=== PATIENT | male | born 1970 | race Hispanic/Latino ===

== ENCOUNTER 2019-06-24 10:06 | Day surgery (SDC) | payer BC ==
--- NOTE | 2019-06-24 09:48 | Short Stay Summary ---
Short Stay Documentation Date of service: 06/24/19 - History H&P: obtained from office - Allergies and Medications Current Medications: Allergies No Known Allergies Allergy (Verified 06/17/19 17:18) Home Medications Medication Instructions Recorded Confirmed Last Taken Type No Known Home Medications [No 06/17/19 06/17/19 Unknown History Reported Home Medications] Active Medications Celecoxib (Celebrex) 400 mg PO PREOP NR Stop: 06/24/19 23:59 Gabapentin (Gabapentin) 1,200 mg PO PREOP TIFFANIE Stop: 06/24/19 23:59 Sodium Chloride (Nacl 0.9% 1000 Ml) 1,000 mls @ 100 mls/hr IV DIRECT TIFFANIE Cefazolin Sodium (Ancef/Sterile Water 2 Gm/20 Ml) 2 gm in 20 mls @ 80 mls/hr IV PREOP NR; Protocol Stop: 06/24/19 23:59 - Physical exam General appearance: no acute distress HEENT: Atraumatic Lungs: Normal air movement Gastrointestinal: other (umbilical hernia) Neurological: Normal speech - Brief post op/procedure progress note Date of procedure: 06/24/19 (dictation:[id number]) Pre-op diagnosis: symptomatic umbilical hernia Post-op diagnosis: same Procedure: dx lap, open umbo repair with mesh, excision of redundant skin IVF 1250cc EBL min Anesthesia: GETA Findings: 3cm fascial defect at umbo Surgeon: ANTIONETTE OCAMPO Metaphysics Teacher: JEFFY PERDOMO Pathology: list (umbilical skin) Specimen disposition: to lab Condition: stable - Hospital course Hospital course: uneventful - Disposition Condition at discharge: Stable Disposition: DC-01 TO HOME OR SELFCARE Short Stay Discharge Plan Activity: advance as tolerated Diet: regular Wound: open to air, keep clean and dry Special Instructions: no heavy lifting, other (empty drain daily and record output.) Additional Instructions: Post Operative Instructions Activity: no heavy lifting for next 1 week. May shower tomorrow. Pat dry the wound or wounds. Keep incision sites clean and dry After surgery, start with a light diet. Consider starting with liquids. If you do well, you can advance to a regular diet as you feel comfortable. Wear the abdominal binder during the day. Try to wear at night if you are able to sleep with it on. May remove for showering. Replace gauze in belly button area after showering. Apply an ice pack to the wound or wounds for 10-20 minutes at a time. Do this at least 4-5 times a day. You can do it more if he would like. Pain Medication Schedule for the first 2 days after surgery: Gabapentin 600mg twice a day Celebrex (celecoxib) 200mg twice a day Tylenol 500mg four times a day (every 6 hours) After the first 2 days, then take alternating doses of ibuprofen and Tylenol as needed for pain. Take 600 mg of ibuprofen every 6 hours as needed. Take 500 mg of Tylenol every 6 hours as needed. You should alternate these 2 medicines. Make sure you take the ibuprofen with food. It is very important that you use the prescription narcotic pain medicine (hydrocodone) only for very severe pain. Do not take the narcotic medicine before you try using all the medications listed above. We will call you in a couple of days to see how youre doing. If you have any questions or concerns, always feel free to call the clinic ([phone]) at any time. Follow up with: DELFINA LAKE MD [Primary Care Provider] - 7 Days ANTIONETTE OCAMPO MD [Staff Physician] - 7 Days Forms: Outpatient Surgery DC Inst. Prescriptions: Celecoxib [celeBREX] 200 mg PO BID #4 capsule Gabapentin 900 mg PO BID #12 capsule HYDROcodone/APAP 5-325 [Felt 5-325 mg TAB] 1 each PO Q6HR PRN #20 tablet PRN Reason: Pain Acetaminophen [Tylenol] 650 mg PO QID #16 capsule
[~2019-06-24 10:06] MED LIST: ACETAMINOPHEN 500 MG TAB PO ONE; CELECOXIB 200 MG CAP PO NR; GABAPENTIN 400 MG CAP PO SCH; SODIUM CHLORIDE 0.9% 1000 ML 1,000 ML IV SCH; ceFAZolin/Water 2 GM/20 ML 2 GM/20 ML SYRINGE IV NR
[2019-06-24] MEDS ORDERED: GABAPENTIN 300 MG CAP PO NR (10:45)
--- NOTE | 2019-06-24 11:16 | Anesthesia Day of Surgery ---
Anesthesia Day of Surgery - Day of Surgery Patient Examined: Yes Patient H&P Reviewed: Yes Patient is NPO: Yes
--- NOTE | 2019-06-24 11:16 | Anesthesia Consultation ---
Anesthesia Consult and Med Hx Date of service: 06/24/19 - Airway Anesthetic Teeth Evaluation: Good ROM Head & Neck: Adequate Mental/Hyoid Distance: Adequate Mallampati Class: Class II Intubation Access Assessment: Good - Pulmonary Exam CTA: Yes - Cardiac Exam Cardiac Exam: No Murmur - Pre-Operative Health Status ASA Pre-Surgery Classification: ASA2 Proposed Anesthetic Plan: General - Pulmonary Hx Smoking: Yes (AT LEAST 40YRS; 1PPD NOW (STATED UNABLE TO STOP FOR SURGERY)) - Other Systems Hx Alcohol Use: No Hx Substance Use: No Hx Cancer: No Hx Obesity: Yes (BMI 33)
[2019-06-24] MEDS ORDERED: ACETAMINOPHEN 500 MG TAB ONE (11:49)
[2019-06-24] MEDS ORDERED: LIDOCAINE (1%) 10 MG/1 ML VIAL 20 ML MDV ONE (11:53)
[2019-06-24] MEDS ORDERED: BUPIVACAINE-EPINEPHRINE/PF 0.5%-1:200,000 (30 ML) VIAL INFILTRATI ONE ×2 (11:53→13:31)
[2019-06-24] MEDS ORDERED: FAMOTIDINE 20 MG TAB PO NR (12:00)
[2019-06-24] MEDS ORDERED: MIDAZOLAM 2 MG/2 ML INJ ONE (12:00)
[2019-06-24] MEDS ORDERED: ROCURONIUM 50 MG/5 ML INJ IV ONE (12:00)
[2019-06-24] MEDS ORDERED: fentaNYL 100 MCG/2 ML INJ ONE (12:00)
[2019-06-24] MEDS ORDERED: HYDROmorphone 1 MG/1 ML INJ ONE (12:00)
[2019-06-24] MEDS ORDERED: LIDOCAINE MPF (2%) 20 MG/1 ML VIAL 5 ML ONE (12:00)
[2019-06-24] MEDS ORDERED: MIDAZOLAM 2 MG/2 ML INJ IV NR (12:00)
[2019-06-24] MEDS ORDERED: PROPOFOL 200 MG/20 ML VIAL IV ONE (12:01)
[2019-06-24] MEDS ORDERED: PHENYLEPHRINE/NS 1,000 MCG/10 ML SYRINGE (OR USE) IV ONE (12:38)
[2019-06-24] MEDS ORDERED: KETOROLAC 30 MG/1 ML INJ ONE (13:09)
[2019-06-24] MEDS ORDERED: dexAMETHasone 20 MG/5 ML VIAL ONE (13:10)
[2019-06-24] MEDS ORDERED: ONDANSETRON 4 MG/2 ML INJ ONE (13:10)
[2019-06-24] MEDS ORDERED: GLYCOPYRROLATE 0.4 MG/2 ML INJ ONE (13:10)
[2019-06-24] MEDS ORDERED: NEOSTIGMINE 10MG/10 ML INJ MDV ONE (13:10)
[2019-06-24] MEDS ORDERED: LACTATED RINGERS 1,000 ML ONE (13:12)
[2019-06-24] MEDS ORDERED: LIDOCAINE (1%) 10 MG/1 ML VIAL 20 ML MDV INFILTRATI ONE (13:32)
[2019-06-24] MEDS ORDERED: WATER FOR IRRIG STERILE 1,500 ML BOTTLE IR ONE (13:33)
[2019-06-24] MEDS ORDERED: fentaNYL 100 MCG/2 ML INJ IV PRN (13:57)
[2019-06-24] MEDS ORDERED: HYDROcodone/ACETAMINOPHEN 5-325 MG TAB PO PRN (14:15)
[2019-06-24 15:09] VITALS: BP 136/85
--- NOTE | 2019-06-24 17:26 | Post Anesthesia Evaluation ---
- Post Anesthesia Evaluation Patient Participated: Yes Airway Patent: Yes Stable Respiratory Function: Yes Nausea/Vomiting: No Temp > 96.8F: Yes Pain Manageable: Yes Adequeate Hydration: Yes Anesthesia Complications: No
--- NOTE | 2019-06-25 15:14 | Operative Report ---
OPERATIVE NOTE PREOPERATIVE DIAGNOSIS: Symptomatic umbilical hernia. POSTOPERATIVE DIAGNOSIS: Symptomatic umbilical hernia. PROCEDURES: 1. Diagnostic laparoscopy. 2. Open umbilical hernia repair with mesh. ATTENDING PHYSICIAN: Lin Hylton MD MUSIC AUTOGRAPHER: Dr. Callaway. ANESTHESIA: General. ESTIMATED BLOOD LOSS: Minimal. FLUIDS: 1250 mL. Minimal blood loss. FINDINGS: Approximately 2.5 cm umbilical hernia, oriented in a transverse manner, no incarcerated contents. Overlying skin was showing signs of breakdown, but no full-thickness perforation had occurred yet. Skin was very thin. Rest of the intraabdominal cavity was normal. IMPLANTS: Large Ventralex [place]. DRAINS: None. COMPLICATIONS: None. DISPOSITION: Stable, transferred to Recovery Room. INDICATIONS: This is a 49-year-old male who presented with a painful umbilical hernia that had been growing over the years. The patient wished to have it repaired. The patient appeared to be in need of repair. However, the patient was current smoker in the clinic. We discussed the importance of stopping the smoking. 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 I made sure that he understood that we were at increased risks of complications as well as hernia recurrence risk. The patient understood and wished to proceed. Procedure, risks, and benefits were explained. Risks included but were not limited to infection, bleeding, pain, injury to surrounding structures, possible recurrence, and possible need for further procedures in the future. The patient understood and consented. OPERATIVE NOTE: The patient was brought to the operating room and placed on the table in supine position. After adequate general anesthesia was established, the patient was positioned for robotic repair. All pressure points were padded. Sterile prep and drape was performed. SCDs were in place. Antibiotics had been given. Time-out was called. I began by placing a Veress needle in left upper quadrant. I was able to insufflate the abdomen in first attempt. Immediately once we began insufflating the umbilical skin popped up as the abdomen was insufflated, I took the opportunity to thoroughly evaluate the defect as I was limited due to his discomfort in the office, I paused here because I was concerned that as he is at higher risk for complications due to smoking, if I do a thorough dissection for a preperitoneal repair if he suffers a complication, this may set him back quite a bit such that he would not be able to return to work as soon as he wishes and that may affect his financial situation. I felt that as the skin is very thin, as there is no real dissection that needs to be done if I were just to do an open repair, which I would have to cut the skin anyway because he has so much excess, our plan was to trim that excess and then close that area. Since I was going to do that anyway, I might as well just due to a straightforward open repair, which would limit the dissection and hopefully limit his potential for complications involving the wound. I discussed this with Dr. Callaway. We ultimately moved forward with that plan and infraumbilical curvilinear incision was made. Skin was easily elevated and then we could see the fascial opening very easily, no further dissection was necessary. We cleared off the tissue around the fascia, so that we would have good edges for closure. A large Ventralex surgical [place] was inserted. We placed interrupted 0 Ethibond sutures into the fascia and incorporated the mesh. We had previously placed 5 mm port where the Veress needle was using the Optiview technique. We then inspected the internal cavity. Again, we had already done at once and found no abnormalities other than the umbilical opening. Now, we could see the mesh lying very nicely. There were no areas of concerns such that we felt that the tacking was required. I went ahead and closed the fascia. We had a very nice closure. The mesh continued to be in very good position, and no tacking was required. Nothing had gotten in between the mesh and the anterior abdominal wall. I then injected a large amount of local into the surrounding tissue, so that hopefully he would wake up with minimal discomfort. A 3-0 Vicryl was used to tack down the skin in various locations. Please note we had excised a significant amount of skin and sent that to pathology. I then closed the skin with a running 4-0 Monocryl subcuticular stitch. Skin was cleaned and dried. Dermabond was placed. The patient tolerated the procedure well. There were no complications. We placed a wad of gauze in the center of the new umbilicus to hold it down to help with scar into that position and hopefully minimize a seroma development. I spoke with the eliecer at the end of the case. [facility]# [id number] ABEL/JAMMIE
== END 2019-06-24 16:00 | disposition home or self-care (01) ==
LOC: OR 10:06
PROVIDERS: ATTEND Surgery
DX: K43.9 Ventral hernia without obstruction or gangrene (principal); F17.210 Nicotine dependence, cigarettes, uncomplicated; E66.9 Obesity, unspecified; Z79.899 Other long term (current) drug therapy; Z68.33 Body mass index [BMI] 33.0-33.9, adult; Z98.890 Other specified postprocedural states
CPT/HCPCS: 49585; 88302; C1781; J0690; J1100; J1170; J1885; J2250; J2370; J2405; J2704; J2710; J3010; J7030; J7120

== ENCOUNTER 2020-11-08 08:17 | Outpatient (CLI) | payer BC ==
[2020-11-08] MEDS ORDERED: LIDOCAINE (4%) 40 MG/ML TOPICAL SOLN 50 ML BOTTLE TP SCH (08:30)
== END 2020-11-08 08:18 | disposition home or self-care (01) ==
LOC: WOUND 08:17
PROVIDERS: ATTEND Surgery
DX: I87.311 Chronic venous hypertension (idiopathic) with ulcer of right lower extremity (principal); L97.812 Non-pressure chronic ulcer of other part of right lower leg with fat layer exposed; L97.312 Non-pressure chronic ulcer of right ankle with fat layer exposed; K74.60 Unspecified cirrhosis of liver; F17.210 Nicotine dependence, cigarettes, uncomplicated

== ENCOUNTER 2021-01-01 11:53 | Outpatient (CLI) | payer BC ==
[2021-01-01] MEDS ORDERED: LIDOCAINE (4%) 40 MG/ML TOPICAL SOLN 50 ML BOTTLE TP ONE (14:09)
== END 2021-01-01 11:54 | disposition home or self-care (01) ==
LOC: WOUND 11:53
PROVIDERS: ATTEND Surgery
DX: I87.311 Chronic venous hypertension (idiopathic) with ulcer of right lower extremity (principal); L97.812 Non-pressure chronic ulcer of other part of right lower leg with fat layer exposed; L97.312 Non-pressure chronic ulcer of right ankle with fat layer exposed; K74.60 Unspecified cirrhosis of liver; F17.210 Nicotine dependence, cigarettes, uncomplicated

== ENCOUNTER 2021-01-15 08:43 | Outpatient (CLI) | payer BC ==
[2021-01-15] MEDS ORDERED: LIDOCAINE (4%) 40 MG/ML TOPICAL SOLN 50 ML BOTTLE TP ONE (08:49)
== END 2021-01-15 08:44 | disposition home or self-care (01) ==
LOC: WOUND 08:43
PROVIDERS: ATTEND Surgery
DX: I87.311 Chronic venous hypertension (idiopathic) with ulcer of right lower extremity (principal); L97.812 Non-pressure chronic ulcer of other part of right lower leg with fat layer exposed; L97.312 Non-pressure chronic ulcer of right ankle with fat layer exposed; K74.60 Unspecified cirrhosis of liver; F17.210 Nicotine dependence, cigarettes, uncomplicated
CPT/HCPCS: 99211; G0463